=== PATIENT | male | born 1970 | race Caucasian/White ===

== ENCOUNTER 2020-12-10 19:13 | Emergency (ER) | payer OTHER ==
[~2020-12-10] VITALS: Ht 182.9 cm; Wt 77.1 kg
[2020-12-10] MEDS ORDERED: CEPHALEXIN500 MG PO (19:37)
[2020-12-10 19:41] VITALS: BP 139/94
== END 2020-12-10 19:41 | disposition home or self-care (01) ==
LOC: M.ERS 19:13
DX: S61.532A Puncture wound without foreign body of left wrist, initial encounter (principal); Z87.01 Personal history of pneumonia (recurrent); W26.0XXA Contact with knife, initial encounter; Y93.89 Activity, other specified; Y92.89 Other specified places as the place of occurrence of the external cause; Y99.8 Other external cause status